=== PATIENT | male | born 1960 | race Two or more races ===

== ENCOUNTER 2019-05-03 17:06 | Emergency (ER) | payer MEDICAID, OTHER ==
[~2019-05-03] VITALS: Ht 175.3 cm; Wt 95.3 kg
[2019-05-03 17:54] VITALS: BP 145/95
[2019-05-03] MEDS ORDERED: cefTRIAXone SOD 1,000 MG VL IM ONE (21:00)
[2019-05-03] MEDS ORDERED: PROMETHAZINE W/CODEINE 5 ML ORAL SYRUP PO ONE (21:00)
== END 2019-05-03 21:36 | disposition home or self-care (01) ==
LOC: ER 17:23
DX: J18.9 Pneumonia, unspecified organism (principal); I10 Essential (primary) hypertension; F17.210 Nicotine dependence, cigarettes, uncomplicated
CPT/HCPCS: 71046; 96372; 99283; J0696